=== PATIENT | male | born 1980 | race Caucasian/White ===

== ENCOUNTER → 2017-10-17 | Outpatient (CLI) | payer OTHER ==
[~2017-10-17] MED LIST: CIPR1TAB10 PO; METR-163 PO
[2017-10-17 13:12] LABS: BASO % 0.2 %; BASO ABS # 0.02 K/uL (0-0.2); EOS % 0.1 %; EOS ABS # 0.01 K/uL (0-0.5); HEMATOCRIT 45.2 % (42-52); HEMOGLOBIN 15.6 g/dL (14.0-18.0); IG# 0.02 K/uL (0.00-0.02); LYMPH % 9.8 %; LYMPH ABS # 1.02 K/uL (1.2-3.4); MEAN CELL VOLUME 80.7 fL (80-100); MEAN CORPUSCULAR HEMOGLOBIN 27.9 pg (25-34); MEAN CORPUSCULAR HGB CONC 34.5 g/dl (32-36); MEAN PLATELET VOLUME 9.5 fL (7.4-10.4); MONO % 6.3 %; MONO ABS # 0.65 K/uL (0.11-0.59); NEUT % 83.4 %; NEUT ABS # 8.65 K/uL (1.4-6.5); PLATELET COUNT 230 K/uL (130-400); RED CELL DISTRIBUTION WIDTH CV 12.7 % (11.5-14.5); RED CELL DISTRIBUTION WIDTH SD 37.2 fL (36.4-46.3); WHITE BLOOD COUNT 10.37 K/uL (4.8-10.8)
[2017-10-17 13:34] LABS: BLOOD UREA NITROGEN 14 mg/dl (7-18); CALCIUM 9.1 mg/dl (8.5-10.1); CARBON DIOXIDE 27 mmol/L (21-32); CREATININE 1.12 mg/dl (0.60-1.40); GLUCOSE 88 mg/dl (70-99); POTASSIUM 3.7 mmol/L (3.5-5.1); SODIUM 135 mmol/L (136-145)
== END | disposition home or self-care (01) ==
LOC: C.LAB 12:45
PROVIDERS: ATTEND Family Medicine
DX: R10.32 Left lower quadrant pain (principal)

== ENCOUNTER 2017-10-18 15:55 | Inpatient (IN) | payer OTHER ==
[~2017-10-18] VITALS: Ht 172.7 cm; Wt 111.0 kg
[2017-10-18] MEDS ORDERED: SODIUM CHLORIDE 0.9% 1000ML 1,000 ML IV STA (16:11)
[2017-10-18] MEDS ORDERED: PIPERACILLIN/TAZOBACTAM 4.5 GM/100ML D5W IV STA (16:11)
[2017-10-18] MEDS ORDERED: METR-163 PO (16:19)
[2017-10-18] MEDS ORDERED: CIPR1TAB10 PO (16:19)
--- NOTE | 2017-10-18 16:42 | EMERGENCY ROOM VISIT NOTE ---
ED Visit Note First contact with patient: 16:02 CHIEF COMPLAINT: Left lower quadrant pain HISTORY OF PRESENTING ILLNESS: This is a 37-year-old male who presents to the emergency department with complaint of left lower quadrant pain. Patient states that his pain started on Wednesday and has gotten progressively worse, he spoke with his primary care provider who ordered an outpatient CT. Today he had a CT of the abdomen and pelvis and was directed to the emergency department for further treatment. The CT shows concern for perforated diverticulitis. Patient states that he has had associated diarrhea and some low-grade fevers, but denies any vomiting and denies blood in his stool. He states that his pain has actually been a little bit improved today. He has been only taking clear liquids since yesterday, last p.o. intake was 3:30 PM today. Patient states he has not been taking any medications for his pain today. He denies any other symptoms of headaches, chest pain, shortness of breath, back pain, urinary symptoms, or unusual rash. He denies any previous abdominal surgeries and denies any history of diverticulitis or other bowel problems. REVIEW OF SYSTEMS: A complete 10 point review of systems was reviewed with the patient with pertinent positives and negatives as per history of present illness. All else were negative. PAST MEDICAL HISTORY: No significant past medical or surgical history. SOCIAL HISTORY: Lives at home with family. Denies tobacco use. ALLERGIES: No known allergies. PHYSICAL EXAM: CONSTITUTIONAL: Pleasant and cooperative. No acute distress. Nontoxic- appearing. Well appearing and well nourished. HEENT: Normocephalic, atraumatic. Pupils equal, round and reactive to light, EOMI. TMs normal. Pharynx normal. NECK: Supple, full active range of motion without discomfort. RESPIRATORY: Clear to auscultation bilaterally with no wheezing, crackles, rhonchi or stridor. Equal expansion bilaterally. CARDIOVASCULAR: Regular rate and rhythm with no murmurs, rubs or gallops. Normal peripheral perfusion. No edema. GASTROINTESTINAL: Soft, nondistended. Tender to palpation in the left lower quadrant. No rebound tenderness or guarding. No palpable masses or HSM. Bowel sounds present in all quadrants. No CVA tenderness. MUSCULOSKELETAL: Full range of motion of all joints without discomfort. INTEGUMENTARY: No rash or other significant dermatologic conditions noted. NEUROLOGIC: Alert and oriented X 4 with normal affect. Normal strength and sensation in all 4 extremities. No focal neurologic deficits noted. Normal speech. Normal gait observed. ED COURSE AND MEDICAL DECISION MAKING: CC: Patient presenting with complaint of left lower quadrant pain DIFFERENTIAL DIAGNOSIS: Includes, but not limited to diverticulitis, perforation, bowel obstruction, abscess, among others. INTERPRETATION OF LABS: Mild leukocytosis with left shift, no anemia, no significant electrolyte abnormalities, normal renal function, normal liver enzymes. IMAGING: ABDOMEN AND PELVIS CT WITH IV CONTRAST CT DOSE: 1134.78 mGy.cm HISTORY: Acute left lower quadrant abdominal pain LLQ PAIN TECHNIQUE: Multiaxial CT images of the abdomen and pelvis were performed following the use of intravenous contrast. A dose lowering technique was utilized adhering to the principles of ALARA. COMPARISON STUDY: None. FINDINGS: Mild subsegmental bibasilar atelectasis. Imaged inferior cardiac chambers are unremarkable. Gallbladder, liver, spleen, pancreas and adrenal glands are within normal limits. Kidneys, ureters and bladder are also within normal limits. Aorta is normal in course and caliber. No bulky adenopathy. No small bowel obstruction. Moderate colonic diverticulosis with moderate wall thickening and moderate to extensive pericolonic inflammation centered about an inflamed diverticulum of the descending sigmoid colon junction on image 334 series 3. There are multiple foci of extraluminal air within the adjacent mesenteric fat compatible with microperforation. There is thickening of the adjacent peritoneum with trace adjacent free pelvic fluid which tracks along the left pericolic gutter. No drainable fluid collections. Normal appendix. Soft tissues are unremarkable. The bones appear intact. IMPRESSION: 1. Findings compatible with acute diverticulitis of the descending sigmoid colon junction with adjacent extraluminal air compatible with perforation. No drainable fluid collection. 2. Normal appendix without evidence of bowel obstruction. MEDICATION RECONCILIATION: I attest that I have personally reviewed the patient 's current medication list. INITIAL VITAL SIGNS REVIEW: I reviewed the patient's initial vital signs and interpret them as follows: T: Afebrile; BP: Normotensive; HR: Tachycardic; RR : Within normal limits; Pulse Ox: Within normal limits on room air. Blood pressure screening: The patient was found to have normal blood pressure on screening and does not require follow-up for repeat blood pressure check. SUMMARY: Patient was evaluated at bedside, history and physical exam performed. Patient is alert and oriented, no acute distress and nontoxic appearing, resting calmly in the stretcher. Patient has tenderness to palpation of the left lower quadrant, but his abdomen is otherwise soft and nondistended, no acute abdomen. Orders were placed at bedside for labs, IV fluids for hydration, IV Zosyn to treat for perforated diverticulitis infection. Patient discussed with Dr. Borrego, who agrees with my assessment and plan. Labs and imaging reviewed as above. I spoke on the phone with Elvia Lucero PA-C with the general surgery team, who agrees to evaluate the patient. After speaking with Dr. Olivo, decision was made to admit the patient to the surgical service and treated conservatively with IV antibiotics. Patient reassessed multiple times throughout ED stay, he remained stable and good condition with no complaints. Patient was updated on all results and plan for admission, he verbalized understanding and was agreeable to this plan. Patient was stable at time of admission. Current/Historical Medications Scheduled Ciprofloxacin Hcl (Cipro), 500 MG PO BID Metronidazole (Flagyl), Unknown Dose PO TID Allergies Coded Allergies: No Known Allergies (Unverified , 10/18/17) Vital Signs Date Time Temp Pulse Resp B/P (MAP) Pulse Ox O2 Delivery O2 Flow Rate FiO2 10/18/17 15:57 36.8 107 18 134/98 100 Room Air Laboratory Results 10/18/17 16:27 Red Blood Count 5.61, Mean Corpuscular Volume 79.5, Mean Corpuscular Hemoglobin 28.3, Mean Corpuscular Hemoglobin Concent 35.7, Mean Platelet Volume 9.9, Neutrophils (%) (Auto) 68.7, Lymphocytes (%) (Auto) 19.7, Monocytes (%) (Auto) 10.8, Eosinophils (%) (Auto) 0.4, Basophils (%) (Auto) 0.2, Neutrophils # (Auto ) 8.56, Lymphocytes # (Auto) 2.46, Monocytes # (Auto) 1.34, Eosinophils # (Auto ) 0.05, Basophils # (Auto) 0.02 10/18/17 16:27 Test 10/18/17 16:27 White Blood Count 12.46 K/uL (4.8-10.8) Red Blood Count 5.61 M/uL (4.7-6.1) Hemoglobin 15.9 g/dL (14.0-18.0) Hematocrit 44.6 % (42-52) Mean Corpuscular Volume 79.5 fL (80-100) Mean Corpuscular Hemoglobin 28.3 pg (25-34) Mean Corpuscular Hemoglobin Concent 35.7 g/dl (32-36) Platelet Count 249 K/uL (130-400) Mean Platelet Volume 9.9 fL (7.4-10.4) Neutrophils (%) (Auto) 68.7 % Lymphocytes (%) (Auto) 19.7 % Monocytes (%) (Auto) 10.8 % Eosinophils (%) (Auto) 0.4 % Basophils (%) (Auto) 0.2 % Neutrophils # (Auto) 8.56 K/uL (1.4-6.5) Lymphocytes # (Auto) 2.46 K/uL (1.2-3.4) Monocytes # (Auto) 1.34 K/uL (0.11-0.59) Eosinophils # (Auto) 0.05 K/uL (0-0.5) Basophils # (Auto) 0.02 K/uL (0-0.2) RDW Standard Deviation 36.7 fL (36.4-46.3) RDW Coefficient of Variation 12.7 % (11.5-14.5) Immature Granulocyte % (Auto) 0.2 % Immature Granulocyte # (Auto) 0.03 K/uL (0.00-0.02) Anion Gap 6.0 mmol/L (3-11) Est Creatinine Clear Calc Drug Dose 104.5 ml/min Estimated GFR () 91.8 Estimated GFR (Non- 79.2 BUN/Creatinine Ratio 9.0 (10-20) Calcium Level 8.9 mg/dl (8.5-10.1) Total Bilirubin 0.5 mg/dl (0.2-1) Direct Bilirubin mg/dl (0-0.2) Aspartate Amino Transf (AST/SGOT) 23 U/L (15-37) Alanine Aminotransferase (ALT/SGPT) 27 U/L (12-78) Alkaline Phosphatase 81 U/L (45-117) Total Protein 8.4 gm/dl (6.4-8.2) Albumin 3.5 gm/dl (3.4-5.0) Chemistry Specimen Hemolysis Medications Administered Medications (Trade) Dose Ordered Sig/Ford Route Start Time Stop Time Status Last Admin Dose Admin Sodium Chloride 1,000 ml @ 999 mls/hr Q1H1M STAT IV 10/18/17 16:11 10/18/17 17:11 DC 10/18/17 16:52 999 MLS/HR Piperacillin Sod/ Tazobactam Sod (Zosyn Iv) 4.5 gm NOW STAT IV 10/18/17 16:11 10/18/17 16:13 DC 10/18/17 16:52 4.5 GM Departure Information Impression Primary Impression: Diverticulitis of colon with perforation Dispostion Admitted as an inpatient Condition FAIR Referrals No Doctor, Assigned (PCP) Patient Instructions [facility] Problem Qualifiers Primary Impression: Diverticulitis of colon with perforation Diverticulitis bleeding: unspecified bleeding status Qualified Codes: K57.20 - Diverticulitis of large intestine with perforation and abscess without bleeding
[2017-10-18] MEDS ORDERED: MoRPHine SULFATE 4 MG/ML 1 ML CARP\\VIAL IV PRN ×3 (16:45)
[2017-10-18] MEDS ORDERED: ONDANSETRON INJ 2 MG/ML 2 ML VIAL IV PRN (16:45)
[2017-10-18 16:47] LABS: BASO % 0.2 %; BASO ABS # 0.02 K/uL (0-0.2); EOS % 0.4 %; EOS ABS # 0.05 K/uL (0-0.5); HEMATOCRIT 44.6 % (42-52); HEMOGLOBIN 15.9 g/dL (14.0-18.0); IG# 0.03 K/uL (0.00-0.02); LYMPH % 19.7 %; LYMPH ABS # 2.46 K/uL (1.2-3.4); MEAN CELL VOLUME 79.5 fL (80-100); MEAN CORPUSCULAR HEMOGLOBIN 28.3 pg (25-34); MEAN CORPUSCULAR HGB CONC 35.7 g/dl (32-36); MEAN PLATELET VOLUME 9.9 fL (7.4-10.4); MONO % 10.8 %; MONO ABS # 1.34 K/uL (0.11-0.59); NEUT % 68.7 %; NEUT ABS # 8.56 K/uL (1.4-6.5); PLATELET COUNT 249 K/uL (130-400); RED CELL DISTRIBUTION WIDTH CV 12.7 % (11.5-14.5); RED CELL DISTRIBUTION WIDTH SD 36.7 fL (36.4-46.3); WHITE BLOOD COUNT 12.46 K/uL (4.8-10.8)
--- NOTE | 2017-10-18 16:56 | History and Physical ---
History & Physical Date & Time of Service: October 18, 2017 at 16:48 Chief Complaint: Referral Primary Care Physician: No Doctor, Assigned History of Present Illness Source: patient Desean is a 37 year-old male who presented to emergency room with complaint of LLQ abdominal pain that began Wednesday and has progressively worsened. Saw his PCP today who ordered outpatient CT scan and then presented to emergency room for further evaluation and management. States he had some constipation a few weeks ago and fever but no abdominal pain. Starting Wednesday, noticed LLQ abdominal pain and diarrhea. No blood in stools. Never had history of diverticulitis in the past. Denies of any known true fevers but has some chills and sweats. Denies nausea, vomiting, chest pain, shortness of breathing, difficulty breathing. CT scan sigmoid diverticulitis with extraluminal foci of air in the mesentery consistent with microperforation. No pneumoperitoneum. LABS currently pending Vitals stable, afebrile, mild tachycardia. Past Medical/Surgical History Medical Problems: (1) Diverticula of colon Past Surgical History: No past surgical history Social History Smoking Status: Never Smoker Allergies Coded Allergies: No Known Allergies (Unverified , 10/18/17) Home Medications Scheduled Ciprofloxacin Hcl (Cipro), 500 MG PO BID Metronidazole (Flagyl), Unknown Dose PO TID Review of Systems Constitutional: + chills, + sweats, No fever Respiratory: No wheezing, No shortness of breath, No dyspnea on exertion, No dyspnea at rest Cardiovascular: No chest pain Abdomen: + pain, + diarrhea, No nausea, No vomiting, No GI bleeding Genitourinary - Male: No hematuria Endocrine: No fatigue Hematologic / Lymphatic: No abnormal bleeding/bruising Integumentary: No rash Physical Exam Vital Signs Date Time Temp Pulse Resp B/P (MAP) Pulse Ox O2 Delivery O2 Flow Rate FiO2 10/18/17 15:57 107 18 134/98 100 Room Air General Appearance: WD/WN, no apparent distress Head: normocephalic, atraumatic Eyes: sclerae normal ENT: hearing grossly normal Neck: trachea midline Respiratory/Chest: lungs clear, normal breath sounds, no respiratory distress, no accessory muscle use Cardiovascular: no murmur, + tachycardia Abdomen/GI: soft, no organomegaly, no pulsatile mass, + tenderness (in the LLQ with some guarding, no rebound, rigidity, or peritonitis) Back: normal inspection Extremities/Musculoskelatal: no pedal edema Neurologic/Psych: alert, normal mood/affect, oriented x 3 Skin: normal color, warm/dry, no rash Diagnostics Laboratory Results Results Past 24 Hours Test 10/18/17 16:27 Range/Units White Blood Count 12.46 4.8-10.8 K/uL Red Blood Count 5.61 4.7-6.1 M/uL Hemoglobin 15.9 14.0-18.0 g/dL Hematocrit 44.6 42-52 % Mean Corpuscular Volume 79.5 80-100 fL Mean Corpuscular Hemoglobin 28.3 25-34 pg Mean Corpuscular Hemoglobin Concent 35.7 32-36 g/dl Platelet Count 249 130-400 K/uL Mean Platelet Volume 9.9 7.4-10.4 fL Neutrophils (%) (Auto) 68.7 % Lymphocytes (%) (Auto) 19.7 % Monocytes (%) (Auto) 10.8 % Eosinophils (%) (Auto) 0.4 % Basophils (%) (Auto) 0.2 % Neutrophils # (Auto) 8.56 1.4-6.5 K/uL Lymphocytes # (Auto) 2.46 1.2-3.4 K/uL Monocytes # (Auto) 1.34 0.11-0.59 K/uL Eosinophils # (Auto) 0.05 0-0.5 K/uL Basophils # (Auto) 0.02 0-0.2 K/uL RDW Standard Deviation 36.7 36.4-46.3 fL RDW Coefficient of Variation 12.7 11.5-14.5 % Immature Granulocyte % (Auto) 0.2 % Immature Granulocyte # (Auto) 0.03 0.00-0.02 K/uL Diagnostic Radiology ABDOMEN AND PELVIS CT WITH IV CONTRAST CT DOSE: 1134.78 mGy.cm HISTORY: Acute left lower quadrant abdominal pain LLQ PAIN TECHNIQUE: Multiaxial CT images of the abdomen and pelvis were performed following the use of intravenous contrast. A dose lowering technique was utilized adhering to the principles of ALARA. COMPARISON STUDY: None. FINDINGS: Mild subsegmental bibasilar atelectasis. Imaged inferior cardiac chambers are unremarkable. Gallbladder, liver, spleen, pancreas and adrenal glands are within normal limits. Kidneys, ureters and bladder are also within normal limits. Aorta is normal in course and caliber. No bulky adenopathy. No small bowel obstruction. Moderate colonic diverticulosis with moderate wall thickening and moderate to extensive pericolonic inflammation centered about an inflamed diverticulum of the descending sigmoid colon junction on image 334 series 3. There are multiple foci of extraluminal air within the adjacent mesenteric fat compatible with microperforation. There is thickening of the adjacent peritoneum with trace adjacent free pelvic fluid which tracks along the left pericolic gutter. No drainable fluid collections. Normal appendix. Soft tissues are unremarkable. The bones appear intact. IMPRESSION: 1. Findings compatible with acute diverticulitis of the descending sigmoid colon junction with adjacent extraluminal air compatible with perforation. No drainable fluid collection. 2. Normal appendix without evidence of bowel obstruction. Impression Assessment and Plan 37 year-old male presented to ER with complaint of LLQ abdominal pain and diarrhea starting Wednesday. Outpatient CT scan with IV contrast shows acute sigmoid diverticulitis with extraluminal air consistent with microperforation. No pneumoperitoneum. Vitals stable. Afebrile. Labs currently pending. Abdomen soft, nondistended, tender in LLQ with some guarding however no acute peritoneal signs. Plan: Admit patient to med/surg for conservative management: IV fluids, IV antibiotics , IV pain management as needed, IV Zofran as needed, NPO OOB as tolerated repeat am labs SCDs If there is any change in abdominal examination, increase in wbc, or fever patient may require surgical intervention. This was discussed with patient and his . They understood. Dr. Olivo has seen and examined patient, agrees with above. Resuscitation Status VTE Prophylaxis Will order VTE Prophylaxis: Yes
[2017-10-18 17:25] LABS: ALBUMIN 3.5 gm/dl (3.4-5.0); CALCIUM 8.9 mg/dl (8.5-10.1); CREATININE 1.17 mg/dl (0.60-1.40); POTASSIUM 3.7 mmol/L (3.5-5.1); TOTAL PROTEIN 8.4 gm/dl (6.4-8.2)
[2017-10-18 18:53] VITALS: BP 124/81; TEMP 36.8; O2SAT 99; Ht 172.7 cm; Wt 111.0 kg
[2017-10-18] MEDS ORDERED: IV FLUIDS COMPLETED PRN (19:30)
[2017-10-18] MEDS: D5W AND 1/2NSS + 20MEQ KCL 1,000 ML IV SCH (20:11)
[2017-10-18 20:21] VITALS: BP 112/76; PULSE 86; TEMP 37.3; O2SAT 97
[2017-10-18] MEDS: PIPERACILL/TAZOBAC IV 4.5 GM in DEXTROSE 5% 100ML 100 ML IV SCH (21:48)
[2017-10-18 23:00] VITALS: BP 113/78; PULSE 70; TEMP 36.8; O2SAT 97
[2017-10-19] MEDS: D5W AND 1/2NSS + 20MEQ KCL 1,000 ML IV SCH ×3 (05:36→20:59)
[2017-10-19] MEDS: PIPERACILL/TAZOBAC IV 4.5 GM in DEXTROSE 5% 100ML 100 ML IV SCH ×3 (05:36→22:11)
[2017-10-19 07:37] LABS: BASO % 0.3 %; BASO ABS # 0.02 K/uL (0-0.2); EOS % 1.6 %; EOS ABS # 0.12 K/uL (0-0.5); HEMATOCRIT 41.3 % (42-52); IG# 0.01 K/uL (0.00-0.02); LYMPH % 20.9 %; LYMPH ABS # 1.56 K/uL (1.2-3.4); MEAN CELL VOLUME 79.6 fL (80-100); MEAN CORPUSCULAR HGB CONC 33.9 g/dl (32-36); MEAN PLATELET VOLUME 9.7 fL (7.4-10.4); MONO % 11.8 %; MONO ABS # 0.88 K/uL (0.11-0.59); NEUT % 65.3 %; NEUT ABS # 4.89 K/uL (1.4-6.5); PLATELET COUNT 220 K/uL (130-400); RED CELL DISTRIBUTION WIDTH CV 12.8 % (11.5-14.5); RED CELL DISTRIBUTION WIDTH SD 37.3 fL (36.4-46.3); WHITE BLOOD COUNT 7.48 K/uL (4.8-10.8)
[2017-10-19 07:38] VITALS: BP 127/85; PULSE 74; TEMP 37.1; O2SAT 97
[2017-10-19 08:13] LABS: CALCIUM 8.6 mg/dl (8.5-10.1); CREATININE 0.94 mg/dl (0.60-1.40); POTASSIUM 3.6 mmol/L (3.5-5.1)
[2017-10-19] MEDS ORDERED: ACETAMINOPHEN 325 MG TAB PO PRN ×2 (11:15)
--- NOTE | 2017-10-19 11:25 | Surgery Progress Note ---
Surgery Progress Note Date of Service October 19, 2017. Subjective Post OP Day: HD # 1 feeling okay, pain about the same in the LLQ about 3/10 Has not required any pain medication + bowel movement, no blood No nausea or vomiting sweats last night but afebrile States his dad and brother both had history of diverticulitis in the past. This is patients first occurrence. Objective Vital Signs: Date Time Temp Pulse Resp B/P (MAP) Pulse Ox O2 Delivery O2 Flow Rate FiO2 10/19/17 07:45 Room Air 10/19/17 07:38 37.1 74 18 127/85 (99) 97 Room Air 10/19/17 01:00 Room Air 10/18/17 23:00 36.8 70 16 113/78 (90) 97 Room Air 10/18/17 20:21 37.3 86 18 112/76 (88) 97 Room Air 10/18/17 19:24 Room Air 10/18/17 18:53 36.8 16 124/81 99 Room Air 10/18/17 18:50 87 16 124/81 99 10/18/17 17:57 90 18 126/84 97 Room Air 10/18/17 16:59 87 10/18/17 15:57 36.8 107 18 134/98 100 Room Air General Appearance: WD/WN, no apparent distress Head: normocephalic, atraumatic Neck: trachea midline Respiratory/Chest: lungs clear, normal breath sounds, no respiratory distress, no accessory muscle use Cardiovascular: regular rate, rhythm, no murmur Abdomen: non distended, soft, no organomegaly, no pulsatile mass, + tenderness (LLQ on deep palpation, no peritonitis , rigidity, or guarding, or rebound) Laboratory Results: Results Past 24 Hours Test 10/18/17 16:27 10/19/17 07:13 Range/Units White Blood Count 12.46 7.48 4.8-10.8 K/uL Red Blood Count 5.61 5.19 4.7-6.1 M/uL Hemoglobin 15.9 14.0 14.0-18.0 g/dL Hematocrit 44.6 41.3 42-52 % Mean Corpuscular Volume 79.5 79.6 80-100 fL Mean Corpuscular Hemoglobin 28.3 27.0 25-34 pg Mean Corpuscular Hemoglobin Concent 35.7 33.9 32-36 g/dl Platelet Count 249 220 130-400 K/uL Mean Platelet Volume 9.9 9.7 7.4-10.4 fL Neutrophils (%) (Auto) 68.7 65.3 % Lymphocytes (%) (Auto) 19.7 20.9 % Monocytes (%) (Auto) 10.8 11.8 % Eosinophils (%) (Auto) 0.4 1.6 % Basophils (%) (Auto) 0.2 0.3 % Neutrophils # (Auto) 8.56 4.89 1.4-6.5 K/uL Lymphocytes # (Auto) 2.46 1.56 1.2-3.4 K/uL Monocytes # (Auto) 1.34 0.88 0.11-0.59 K/uL Eosinophils # (Auto) 0.05 0.12 0-0.5 K/uL Basophils # (Auto) 0.02 0.02 0-0.2 K/uL RDW Standard Deviation 36.7 37.3 36.4-46.3 fL RDW Coefficient of Variation 12.7 12.8 11.5-14.5 % Immature Granulocyte % (Auto) 0.2 0.1 % Immature Granulocyte # (Auto) 0.03 0.01 0.00-0.02 K/uL Sodium Level 133 138 136-145 mmol/L Potassium Level 3.7 3.6 3.5-5.1 mmol/L Chloride Level 101 106 98-107 mmol/L Carbon Dioxide Level 26 26 21-32 mmol/L Anion Gap 6.0 6.0 3-11 mmol/L Blood Urea Nitrogen 11 8 7-18 mg/dl Creatinine 1.17 0.94 0.60-1.40 mg/dl Est Creatinine Clear Calc Drug Dose 104.5 130.0 ml/min Estimated GFR () 91.8 119.6 Estimated GFR (Non- 79.2 103.2 BUN/Creatinine Ratio 9.0 8.3 10-20 Random Glucose 101 116 70-99 mg/dl Calcium Level 8.9 8.6 8.5-10.1 mg/dl Total Bilirubin 0.5 0.2-1 mg/dl Direct Bilirubin 0-0.2 mg/dl Aspartate Amino Transf (AST/SGOT) 23 15-37 U/L Alanine Aminotransferase (ALT/SGPT) 27 12-78 U/L Alkaline Phosphatase 81 45-117 U/L Total Protein 8.4 6.4-8.2 gm/dl Albumin 3.5 3.4-5.0 gm/dl Chemistry Specimen Hemolysis Assessment & Plan Acute diverticulitis of the Sigmoid colon with microperforation, no abscess - vitals stable, afebrile, leukocytosis resolved - pain stable, not requiring IV narcotics - + bowel function, no bleeding Plan: Continue conservative management: IV fluids, IV Antibiotics, NPO for one more day, IV pain management and po Tylenol prn pain, IV zofran prn nausea Encourage ambulation and OOB to chair as much as possible decrease IV fluids to 100 mls/hr Dr. Olivo has seen and examined patient, agrees with above
[2017-10-19] MEDS ORDERED: PIPERACILL/TAZOBAC CONSULT ACTIVE PRN (12:30)
[2017-10-19 15:29] VITALS: BP 119/80; PULSE 66; TEMP 36.7; O2SAT 97
[2017-10-19 22:52] VITALS: BP 110/70; PULSE 70; TEMP 36.8; O2SAT 97
[2017-10-20] MEDS: PIPERACILL/TAZOBAC IV 4.5 GM in DEXTROSE 5% 100ML 100 ML IV SCH ×3 (05:32→21:38)
[2017-10-20] MEDS: D5W AND 1/2NSS + 20MEQ KCL 1,000 ML IV SCH ×2 (05:32→21:38)
[2017-10-20 08:18] VITALS: BP 101/64; PULSE 78; TEMP 36.6; O2SAT 95
[2017-10-20 08:44] LABS: HEMOGLOBIN 14.6 g/dL (14.0-18.0); MEAN CELL VOLUME 80.3 fL (80-100); MEAN CORPUSCULAR HEMOGLOBIN 27.9 pg (25-34); MEAN CORPUSCULAR HGB CONC 34.8 g/dl (32-36); MEAN PLATELET VOLUME 9.5 fL (7.4-10.4); PLATELET COUNT 287 K/uL (130-400); RED CELL DISTRIBUTION WIDTH CV 13.1 % (11.5-14.5); RED CELL DISTRIBUTION WIDTH SD 38.1 fL (36.4-46.3); WHITE BLOOD COUNT 5.44 K/uL (4.8-10.8)
[2017-10-20 09:12] LABS: CALCIUM 9.1 mg/dl (8.5-10.1); CREATININE 0.91 mg/dl (0.60-1.40); POTASSIUM 3.9 mmol/L (3.5-5.1)
[2017-10-20] MEDS ORDERED: OXYCODONE/ACETAMINOPHEN 5-325 TAB PO PRN (16:45)
--- NOTE | 2017-10-20 17:27 | Surgery Progress Note ---
Surgery Progress Note Date of Service October 20, 2017. Subjective Post OP Day: HD # 2 + feeling well, + ambulating, + SOB, + bowel movement, + flatus, + pain controlled, + diet (tolerated clears), No complaints, No nausea, No vomiting Objective Vital Signs: Date Time Temp Pulse Resp B/P (MAP) Pulse Ox O2 Delivery O2 Flow Rate FiO2 10/20/17 15:30 Room Air 10/20/17 08:18 36.6 78 16 101/64 (76) 95 Room Air 10/20/17 07:30 Room Air 10/19/17 23:15 Room Air 10/19/17 22:52 36.8 70 16 110/70 (83) 97 Room Air General Appearance: WD/WN, no apparent distress Head: normocephalic, atraumatic Neck: trachea midline Respiratory/Chest: no respiratory distress, no accessory muscle use Abdomen: non tender, non distended, soft, no organomegaly Laboratory Results: Results Past 24 Hours Test 10/20/17 08:15 Range/Units White Blood Count 5.44 4.8-10.8 K/uL Red Blood Count 5.23 4.7-6.1 M/uL Hemoglobin 14.6 14.0-18.0 g/dL Hematocrit 42.0 42-52 % Mean Corpuscular Volume 80.3 80-100 fL Mean Corpuscular Hemoglobin 27.9 25-34 pg Mean Corpuscular Hemoglobin Concent 34.8 32-36 g/dl RDW Standard Deviation 38.1 36.4-46.3 fL RDW Coefficient of Variation 13.1 11.5-14.5 % Platelet Count 287 130-400 K/uL Mean Platelet Volume 9.5 7.4-10.4 fL Sodium Level 139 136-145 mmol/L Potassium Level 3.9 3.5-5.1 mmol/L Chloride Level 108 98-107 mmol/L Carbon Dioxide Level 26 21-32 mmol/L Anion Gap 5.0 3-11 mmol/L Blood Urea Nitrogen 6 7-18 mg/dl Creatinine 0.91 0.60-1.40 mg/dl Est Creatinine Clear Calc Drug Dose 134.3 ml/min Estimated GFR () 124.3 Estimated GFR (Non- 107.3 BUN/Creatinine Ratio 6.2 10-20 Random Glucose 88 70-99 mg/dl Calcium Level 9.1 8.5-10.1 mg/dl Assessment & Plan Acute diverticulitis of the Sigmoid colon with microperforation, no abscess - vitals stable, afebrile, leukocytosis resolved - pain resolved, not requiring pain medications - + bowel function, no rectal bleeding Plan: Advance diet to low fiber diet for dinner Continue IV Antibiotics Plan for discharge tomorrow with oral cipro/flagyl Dr. lOivo has seen and examined patient, agrees with above
[2017-10-20 22:59] VITALS: BP 105/68; PULSE 65; TEMP 36.7; O2SAT 96
[2017-10-21] MEDS: PIPERACILL/TAZOBAC IV 4.5 GM in DEXTROSE 5% 100ML 100 ML IV SCH (05:53)
[2017-10-21 07:40] VITALS: BP 114/71; PULSE 73; TEMP 36.8; O2SAT 96
[2017-10-21] MEDS ORDERED: METR-163 PO (09:14)
[2017-10-21] MEDS ORDERED: CIPR1TAB10 PO (09:14)
--- NOTE | 2017-10-21 09:18 | Discharge Instructions ---
Discharge Instructions Date of Service October 21, 2017. Admission Reason for Admission: Diverticulitis, Microperforation Discharge Discharge Diagnosis / Problem: same Discharge Goals Goal(s): Decrease discomfort, Improve function Activity Recommendations Activity Limitations: as noted below Lifting Limitations: none Exercise/Sports Limitations: gradually increase as tolerated May Resume Sexual Activity: after one week Shower/Bathe: no limitations Driving or Machine Use: no limitations . Instructions / Follow-Up Instructions / Follow-Up You will be given prescription for Cipro and Flagyl (antibiotics) to complete 11 more days of antibiotics. You have 9 days left of Cipro/Flagyl as prescribed to you on Wednesday. I will ginve you 2 more days of antibiotics to finish 11 day course at home. Take as directed and take entire course. You may take extra strength Tylenol or Ibuprofen (with meals) as needed for pain Follow-up in surgical office in 2 weeks, please call office at [phone] to make an appointment Should also call primary care physicians office if not heard back from them tomorrow to get established with a PCP. Will need financial manager evaluation for colonoscopy in 6-8 weeks to evaluate extent of your diverticulosis Please call office with any questions or concerns Current Hospital Diet Patient's current hospital diet: Low Fiber Diet Discharge Diet Recommended Diet: Low Fiber Diet Pending Studies Studies pending at discharge: no Medical Emergencies . Who to Call and When: Medical Emergencies: If at any time you feel your situation is an emergency, please call 911 immediately. . Non-Emergent Contact Non-Emergency issues call your: Primary Care Provider, Surgeon Call Non-Emergent contact if: you have a fever, temperature is above 100.5, your pain is not controlled, your pain is worsening, your pain is unusual for you . "Provider Documentation" section prepared by Elvia Lucero. .
--- NOTE | 2017-10-21 09:23 | Surgery Progress Note ---
Surgery Progress Note Date of Service October 21, 2017. Subjective Post OP Day: HD # 3 + feeling well, + ambulating, + bowel movement, + flatus, + pain controlled, + diet (low fiber diet), No complaints, No chest pain, No SOB, No nausea, No vomiting Objective Vital Signs: Date Time Temp Pulse Resp B/P (MAP) Pulse Ox O2 Delivery O2 Flow Rate FiO2 10/21/17 07:49 Room Air 10/21/17 07:40 36.8 73 18 114/71 (85) 96 Room Air 10/20/17 23:40 Room Air 10/20/17 22:59 36.7 65 16 105/68 (80) 96 Room Air 10/20/17 15:30 Room Air General Appearance: WD/WN, no apparent distress Head: normocephalic, atraumatic Neck: trachea midline Respiratory/Chest: no respiratory distress, no accessory muscle use Abdomen: non tender, non distended, soft, no organomegaly, no pulsatile mass Assessment & Plan Acute diverticulitis with microperforation -vitals stable, afebrile, leukocytosis resolved - tolerated advancement of diet - minimal to no abdominal pain, has not required any narcotics this entire stay Plan: Discharge home with 11 day course of PO Cipro/Flagyl (patient has 9 days of Cipro/flagyl already prescribed will add 2 more days for a total of 14 days of antibiotics) Discharge instructions reviewed f/u 2 weeks establish with PCP will need outpatient GI eval for colonoscopy in 6-8 weeks
[2017-10-21 10:00] VITALS: BP 114/71; PULSE 73; TEMP 36.8; O2SAT 96
== END 2017-10-21 10:25 | disposition home or self-care (01) | DRG 392 ==
LOC: C.EDB 15:57 → C.MSW 16:57 → ENRESERV 17:54
PROVIDERS: ADMIT Surgery; ATTEND Surgery
DX: K57.20 Diverticulitis of large intestine with perforation and abscess without bleeding (principal); Z79.2 Long term (current) use of antibiotics

== ENCOUNTER → 2017-10-18 | Outpatient (CLI) | payer OTHER ==
[~2017-10-18] MED LIST changes: +OPTIRAY 320 IV PRN; +PATIENT'S ALLERGY INFO NEEDS ENTERED SCH
--- NOTE | 2017-10-18 15:49 | DIAGNOSTIC IMAGING REPORT ---
ABDOMEN AND PELVIS CT WITH IV CONTRAST CT DOSE: 1134.78 mGy.cm HISTORY: Acute left lower quadrant abdominal pain LLQ PAIN TECHNIQUE: Multiaxial CT images of the abdomen and pelvis were performed following the use of intravenous contrast. A dose lowering technique was utilized adhering to the principles of ALARA. COMPARISON STUDY: None. FINDINGS: Mild subsegmental bibasilar atelectasis. Imaged inferior cardiac chambers are unremarkable. Gallbladder, liver, spleen, pancreas and adrenal glands are within normal limits. Kidneys, ureters and bladder are also within normal limits. Aorta is normal in course and caliber. No bulky adenopathy. No small bowel obstruction. Moderate colonic diverticulosis with moderate wall thickening and moderate to extensive pericolonic inflammation centered about an inflamed diverticulum of the descending sigmoid colon junction on image 334 series 3. There are multiple foci of extraluminal air within the adjacent mesenteric fat compatible with microperforation. There is thickening of the adjacent peritoneum with trace adjacent free pelvic fluid which tracks along the left pericolic gutter. No drainable fluid collections. Normal appendix. Soft tissues are unremarkable. The bones appear intact. IMPRESSION: 1. Findings compatible with acute diverticulitis of the descending sigmoid colon junction with adjacent extraluminal air compatible with perforation. No drainable fluid collection. 2. Normal appendix without evidence of bowel obstruction. These findings were discussed Dr. Diaz with on 10/18/2017 at 3:39 PM Electronically signed by: Daniel Stockton M.D. 10/18/2017 3:48 PM Dictated Date/Time: 10/18/2017 3:33 PM
== END | disposition home or self-care (01) ==
LOC: C.CTS 14:48
PROVIDERS: ATTEND Family Medicine
DX: R10.32 Left lower quadrant pain (principal)